=== PATIENT | male | born 1945 | race Caucasian/White ===

== ENCOUNTER 2017-10-07 09:11 | Day surgery (SDC) | payer MEDICARE, OTHER ==
[~2017-10-07 09:11] MED LIST: CHONDR SU A NA/HYALUR INTRAOC KIT (SURGICARE) ONE; EPINEPHRINE INJ/PF 1 MG/1 ML AMPULE ONE; KETOROLAC TROMETHAMINE 0.45% 4 DROP/0.4 ML DROPERETTE OS PRN; LIDOCAINE 1% INJ-PF (10 MG/ML) 30 ML SDV ONE
[2017-10-07] MEDS: TETRACAINE HCL 0.5% OPH SOLN 2 ML OS PRN ×3 (09:31→10:23)
[2017-10-07] MEDS: CYCLOPENTOLATE 0.2%/PHENYLEPHRINE 1% OPH SOLN 2 ML OS PRN ×3 (09:32→10:02)
[2017-10-07] MEDS: TROPICAMIDE 1% OPH SOLN 3 ML OS PRN ×3 (09:32→10:02)
[2017-10-07] MEDS: BESIFLOXACIN HCL 0.6% OPH SUSP 5 ML BOTTLE OS PRN ×5 (09:33→10:52)
[2017-10-07] MEDS ORDERED: MIDAZOLAM 2 MG/2 ML INJ ONE (10:08)
--- NOTE | 2017-10-07 16:28 | DISCHARGE SUMMARY E ---
Discharge Summary NAME: MONY JETER : 1945 AGE: 72Y ADMITTED: 10/07/2017 DISCHARGED: 10/07/2017 FINAL DIAGNOSIS: Cataract, left eye. This is 72-year-old patient who underwent cataract extraction of the left eye. She underwent surgery because she was having difficulty seeing road signs. Patient should be on a regular diet. No bending at her waist, no heavy lifting. She should use Besivance, Ilevro and Durezol at 3:00 p.m. and 8:00 p.m. Sleep with a rigid shield. I will see her for a 1-day postoperative tomorrow. DICTATING PHYSICIAN: BOUCHRA ANDRE M.D. [id number] [id number] PHY#: [id number] ID: [id number] JOB#: [id number] ACCT: [id number] cc:BOUCHRA ANDRE M.D. >
--- NOTE | 2017-10-07 16:29 | [facility] OPERATIVE REPORT E ---
[facility] Operative Report NAME: MONY JETER AGE: 72Y DATE OF SURGERY: 10/07/2017 ROOM: PREOPERATIVE DIAGNOSIS: CATARACT, LEFT EYE. POSTOPERATIVE DIAGNOSIS: CATARACT, LEFT EYE. OPERATION: Cataract extraction with intraocular lens implant of the left eye. SURGEON: BOUCHRA ANDRE M.D. ANESTHESIA: Topical. TISSUE REMOVED OR ALTERED: PROCEDURE: After obtaining appropriate consent, the patient's left eye was prepped and draped in sterile fashion as well as the surgeon in a sterile manner and cataract surgery was started. First a paracentesis blade was used to make a small side-port incision. Viscoelastic was used to inflate the anterior chamber. Next a 2.4 mm incision was made with the paracentesis blade. A continuous capsulorrhexis incision was made using a cystotome and Utrata forceps. Following this hydrodissection was carried out to make the lens fully loose and mobile and it was rotated 90 degrees. Following this, a fhfnbu-dyc-censbwj technique was used to phacoemulsify the lens with a CDE of 6.89. The remaining cortex was removed with irrigation/aspiration. Provisc was instilled into the capsular bag to inflate the bag. A SN60WF, 12.5 diopter lens was placed. The remaining viscoelastic material was removed with irrigation/aspiration. Following this, a 10-0 nylon suture was used to close the incision and it was found to be watertight. Vigamox was instilled in the eye and a protective shield was placed over the eye. The patient returned to the postoperative recovery in stable condition. DICTATING PHYSICIAN: BOUCHRA ANDRE M.D. 5233M [id number] Y#: [id number] ID: [id number] JOB#: [id number] ACCT: [id number] cc:BOUCHRA ANDRE M.D. >
--- NOTE | 2017-10-07 17:38 | [facility] OPERATIVE REPORT E ---
[facility] Operative Report NAME: MONY JETER AGE: 72Y DATE OF SURGERY: 10/07/2017 ROOM: PREOPERATIVE DIAGNOSIS: 1. CATARACT, LEFT EYE. 2. PUPIL MIOSIS OF THE LEFT EYE. POSTOPERATIVE DIAGNOSIS: 1. CATARACT, LEFT EYE. 2. PUPIL MIOSIS OF THE LEFT EYE. OPERATION: Complex cataract extraction with use of a Malyugin ring due to poor pupillary dilation or pupillary miosis with intraocular lens implant of the left eye. SURGEON: BOUCHRA ANDRE M.D. ANESTHESIA: Topical. PROCEDURE: After obtaining appropriate consent, the patient's left eye was prepped and draped in sterile fashion as well as the surgeon in a sterile manner and cataract surgery was started. First a paracentesis blade was used to make a small side-port incision. Viscoelastic was used to inflate the anterior chamber. Next a 2.4 mm incision was made with the paracentesis blade. A continuous capsulorrhexis incision was made using a cystotome and Utrata forceps. Following this hydrodissection was carried out to make the lens fully loose and mobile and it was rotated 90 degrees. Following this, a nnpyrb-acb-sxbajaz technique was used to phacoemulsify the lens with a CDE of 6.87. The remaining cortex was removed with irrigation/aspiration. Provisc was instilled into the capsular bag to inflate the bag. A SN60WF, 12.5 diopter lens was placed. The remaining viscoelastic material was removed with irrigation/aspiration. Following this, a 10-0 nylon suture was used to close the incision and it was found to be watertight. Vigamox was instilled in the eye and a protective shield was placed over the eye. The patient returned to the postoperative recovery in stable condition. Prior to making the capsulorhexis a Malyugin ring was inserted. This was removed at the end of the case. This was inserted due to poor pupillary dilatation or pupil miosis. DICTATING PHYSICIAN: BOUCHRA ANDRE M.D. 5020M 1731 PHY#: [id number] ID: [id number] JOB#: [id number] ACCT: [id number] cc:BOUCHRA ANDRE M.D. >
--- NOTE | 2017-10-07 17:38 | [facility] DISCHARGE SUMMARY E ---
[facility] Discharge Summary NAME: MONY JETER AGE: 72Y ADMITTED: 10/07/2017 DISCHARGED: 10/07/2017 HOSPITAL COURSE: This is a 72-year-old patient who underwent cataract extraction of the left eye. DIAGNOSIS: 1. CATARACT, LEFT EYE. 2. PUPIL MIOSIS LEFT EYE WITH COMPLEX CATARACT EXTRACTION WITH USE OF MALYUGIN RING DUE TO A VERY MIOTIC PUPIL. The patient underwent surgery because he was having difficulty with glare from headlights. DISCHARGE INSTRUCTIONS: The patient should be on a regular diet. No bending at the waist, no heavy lifting. He should use Besivance, Ilevro, and Durezol at 3 p.m. and 8 p.m. and sleep with a rigid shield. I will see him for a 1 day postoperative tomorrow. DICTATING PHYSICIAN: BOUCHRA ANDRE M.D. 5020M 1734 PHY#: [id number] ID: [id number] JOB#: [id number] ACCT: [id number] cc:BOUCHRA ANDRE M.D. >
== END 2017-10-07 11:43 | disposition home or self-care (01) ==
LOC: SC 09:11
PROVIDERS: ATTEND Internal Medicine
PROC: 08RK3JZ Replacement of Left Lens with Synthetic Substitute, Percutaneous Approach (ICD-10-PCS; principal; 2017-10-07 11:00)
DX: H25.13 Age-related nuclear cataract, bilateral (principal); H57.03 Miosis; H04.123 Dry eye syndrome of bilateral lacrimal glands; H43.813 Vitreous degeneration, bilateral; K21.9 Gastro-esophageal reflux disease without esophagitis; I10 Essential (primary) hypertension; Z79.82 Long term (current) use of aspirin; Z87.891 Personal history of nicotine dependence; Z88.2 Allergy status to sulfonamides; Z79.899 Other long term (current) drug therapy
CPT/HCPCS: 66982; V2632; J2250; J3490 ×2; J0171; 142

== ENCOUNTER 2017-11-04 08:34 | Day surgery (SDC) | payer OTHER ==
[~2017-11-04 08:34] MED LIST changes: -CHONDR SU A NA/HYALUR INTRAOC KIT (SURGICARE) ONE; -EPINEPHRINE INJ/PF 1 MG/1 ML AMPULE ONE; +KETOROLAC TROMETHAMINE 0.45% 4 DROP/0.4 ML DROPERETTE OD PRN; -KETOROLAC TROMETHAMINE 0.45% 4 DROP/0.4 ML DROPERETTE OS PRN; -LIDOCAINE 1% INJ-PF (10 MG/ML) 30 ML SDV ONE
[2017-11-04] MEDS ORDERED: EPINEPHRINE INJ/PF 1 MG/1 ML AMPULE ONE (08:44)
[2017-11-04] MEDS ORDERED: CHONDR SU A NA/HYALUR INTRAOC KIT (SURGICARE) ONE (08:45)
[2017-11-04] MEDS ORDERED: LIDOCAINE 1% INJ-PF (10 MG/ML) 30 ML SDV ONE (08:45)
[2017-11-04] MEDS: BESIFLOXACIN HCL 0.6% OPH SUSP 5 ML BOTTLE OD PRN ×4 (09:25→10:25)
[2017-11-04] MEDS: TROPICAMIDE 1% OPH SOLN 3 ML OD PRN ×3 (09:25→09:45)
[2017-11-04] MEDS: CYCLOPENTOLATE 0.2%/PHENYLEPHRINE 1% OPH SOLN 2 ML OD PRN ×3 (09:25→09:45)
[2017-11-04] MEDS: TETRACAINE HCL 0.5% OPH SOLN 2 ML OD PRN ×3 (09:26→10:03)
[2017-11-04] MEDS ORDERED: FENTANYL CITRATE INJ/PF 100 MCG/2 ML AMPUL ONE (09:39)
[2017-11-04] MEDS ORDERED: MIDAZOLAM 2 MG/2 ML INJ ONE (09:39)
[2017-11-04] MEDS ORDERED: ONDANSETRON HCL INJ/PF 4 MG/2 ML SDV ONE (09:40)
--- NOTE | 2017-11-04 20:19 | [facility] DISCHARGE SUMMARY E ---
[facility] Discharge Summary NAME: MONY JETER AGE: 72Y ADMITTED: 11/04/2017 DISCHARGED: 11/04/2017 HOSPITAL COURSE: This is a 72-year-old male who underwent cataract extraction of the right eye. DIAGNOSIS: CATARACT, RIGHT EYE. He underwent surgery because he was having difficulty with glare from headlight. DISCHARGE INSTRUCTIONS: He should be on a regular diet. No bending at his waist, no heavy lifting. He should use Besivance, Ilevro, and Durezol at 3 p.m. and 8 p.m. and sleep with a rigid shield. I will see him for his 1 day postoperative tomorrow. DICTATING PHYSICIAN: BOUCHRA ANDRE M.D. 5020M 2014 PHY#: [id number] ID: [id number] JOB#: [id number] ACCT: [id number] cc:BOUCHRA ANDRE M.D. >
--- NOTE | 2017-11-04 20:19 | [facility]PERATIVE REPORT E ---
[facility] Operative Report NAME: MONY JETER AGE: 72Y DATE OF SURGERY: 11/04/2017 ROOM: PREOPERATIVE DIAGNOSIS: CATARACT, RIGHT EYE. POSTOPERATIVE DIAGNOSIS: CATARACT, RIGHT EYE. OPERATION: Cataract extraction with intraocular lens implant of the right eye. SURGEON: BOUCHRA ANDRE M.D. ANESTHESIA: Topical. PROCEDURE: After obtaining appropriate consent, the patient's right eye was prepped and draped in sterile fashion as well as the surgeon in a sterile manner and cataract surgery was started. First a paracentesis blade was used to make a small side-port incision. Viscoelastic was used to inflate the anterior chamber. Next a 2.4 mm incision was made with the paracentesis blade. A continuous capsulorrhexis incision was made using a cystotome and Utrata forceps. Following this hydrodissection was carried out to make the lens fully loose and mobile and it was rotated 90 degrees. Following this, a psojms-wzm-ezzcwzs technique was used to phacoemulsify the lens with a CDE of 5.87. The remaining cortex was removed with irrigation/aspiration. Provisc was instilled into the capsular bag to inflate the bag. A SN60WF, 12.0 diopter lens was placed. The remaining viscoelastic material was removed with irrigation/aspiration. Following this, a 10-0 nylon suture was used to close the incision and it was found to be watertight. Vigamox was instilled in the eye and a protective shield was placed over the eye. The patient returned to the postoperative recovery in stable condition. DICTATING PHYSICIAN: BOUCHRA ANDRE M.D. 5020M 2013 PHY#: [id number] ID: [id number] JOB#: [id number] ACCT: [id number] cc:BOUCHRA ANDRE M.D. >
== END 2017-11-04 11:08 | disposition home or self-care (01) ==
LOC: SC 08:34
PROVIDERS: ATTEND Internal Medicine
PROC: 08RJ3JZ Replacement of Right Lens with Synthetic Substitute, Percutaneous Approach (ICD-10-PCS; principal; 2017-11-04 10:30)
DX: H25.11 Age-related nuclear cataract, right eye (principal); Z96.1 Presence of intraocular lens; I10 Essential (primary) hypertension; K21.9 Gastro-esophageal reflux disease without esophagitis; F17.210 Nicotine dependence, cigarettes, uncomplicated; Z79.899 Other long term (current) drug therapy; Z88.2 Allergy status to sulfonamides
CPT/HCPCS: 66984; V2632; J2250; J3490 ×2; J0171; J3010; J2405; 142